=== PATIENT | male | born 1970 | race African-American/Black ===

== ENCOUNTER 2020-05-28 18:36 | Emergency (ER) | payer BC, OTHER ==
[2020-05-28] MEDS ORDERED: Ibuprofen 800 MG TAB ONE (18:54)
[2020-05-29 14:13] LABS: SARS-CoV-2 by NAA DETECTED (NotDetected)
[2020-05-29 14:14] LABS: SARS-CoV-2 MS2 Positive; SARS-CoV-2 N Gene Positive; SARS-CoV-2 S Gene Positive; SARS-CoV-2 orf1ab Positive
== END 2020-05-28 19:17 | disposition home or self-care (01) ==
LOC: ERS 18:36
DX: U07.1 COVID-19 (principal)
CPT/HCPCS: 87635; 99283; U0003

== ENCOUNTER 2020-11-30 07:04 | Outpatient (CLI) | payer BC ==
[2020-12-01 05:17] LABS: SARS-CoV-2 PCR by NAA Not Detected (NotDetected)
== END 2020-11-30 07:05 | disposition home or self-care (01) ==
LOC: LABBT 07:04
PROVIDERS: ATTEND Internal Medicine
DX: Z01.812 Encounter for preprocedural laboratory examination (principal); Z12.11 Encounter for screening for malignant neoplasm of colon; Z20.822 Contact with and (suspected) exposure to COVID-19
CPT/HCPCS: 87635; U0003; U0005

== ENCOUNTER 2020-12-03 05:55 | Day surgery (SDC) | payer BC ==
[2020-12-01 09:20] VITALS: BMI 51.5
[2020-12-03] MEDS ORDERED: Lidocaine 1% PF 5 ML VIAL ONE (10:07)
[2020-12-03] MEDS ORDERED: PROPOFOL 200 MG/20 ML VIAL ONE (10:07)
== END 2020-12-03 10:48 | disposition home or self-care (01) ==
LOC: SDC 05:55
PROVIDERS: ATTEND Internal Medicine
PROC: 0DBP8ZZ Excision of Rectum, Via Natural or Artificial Opening Endoscopic (ICD-10-PCS; principal; 2020-12-03)
DX: Z12.11 Encounter for screening for malignant neoplasm of colon (principal); K62.1 Rectal polyp; I10 Essential (primary) hypertension; E66.01 Morbid (severe) obesity due to excess calories; Z68.43 Body mass index [BMI] 50.0-59.9, adult; Z79.899 Other long term (current) drug therapy; Z86.16 Personal history of COVID-19
CPT/HCPCS: 88305; J0690; J2704